=== PATIENT | female | born 1985 | race American Indian/Alaskan Native ===

== ENCOUNTER 2017-01-08 20:22 | Emergency (ER) | payer OTHER ==
[2017-01-08 20:29] VITALS: BMI 20.9
[2017-01-08 20:53] VITALS: BP 129/60; PULSE 89; RESP 17; TEMP 98.4; O2SAT 100
--- NOTE | 2017-01-08 22:19 | ED PDOC ---
Arrival/HPI - General Historian: Patient - History of Present Illness Time/Duration: 1 week Symptom Onset: Gradual Symptom Course: Unchanged <Sole Lyons - Last Filed: 01/08/17 22:30> <Murali Ritter - Last Filed: 01/08/17 22:41> - General Chief Complaint: Abnormal Skin Integrity Time Seen by Provider: 01/08/17 20:38 - History of Present Illness Narrative History of Present Illness (Text): 01/08/17 22:32 31-year-old female presents today with pruritic rash to the entire body. Patient states she was in [place] for 5 days and immediately after showering in [place] she developed pruritic rash to the entire body. She denies chest pain or shortness of breath. She denies difficulty breathing or swallowing. Patient states she was seen by the doctor in [place] and they told her that it was allergic reaction and she should take Benadryl. Patient states she's been taking Benadryl at helps with the itch but the rash has not resolved yet. (Sole Lyons) Past Medical History - Provider Review Nursing Documentation Reviewed: Yes - Travel History Have you recently traveled outside [place] w/in the past 3 mons?: Yes If Yes, travel location?: [place] - Infectious Disease Hx of Infectious Diseases: None - Tetanus Immunization Tetanus Immunization: Unknown - Psychiatric Hx Substance Use: No - Surgical History Hx Appendectomy: Yes - Anesthesia Hx Anesthesia: Yes Hx Anesthesia Reactions: No Hx Malignant Hyperthermia: No <Sole Lyons - Last Filed: 01/08/17 22:30> Family/Social History - Physician Review Nursing Documentation Reviewed: Yes Family/Social History: Unknown Family HX Smoking Status: Never Smoked Hx Alcohol Use: Yes Frequency of alcohol use: Socially Hx Substance Use: No <Sole Lyons - Last Filed: 01/08/17 22:30> Allergies/Home Meds <Sole Lyons - Last Filed: 01/08/17 22:30> <Murali Ritter - Last Filed: 01/08/17 22:41> Allergies/Adverse Reactions: Allergies Penicillins Adverse Reaction (Verified 01/08/17 20:29) ANAPHYLAXIS Review of Systems - Review of Systems Constitutional: absent: Fatigue, Fevers ENT: absent: Sore Throat, Sinus Congestion Respiratory: absent: SOB, Cough Cardiovascular: absent: Chest Pain, Palpitations Gastrointestinal: absent: Abdominal Pain, Nausea, Vomiting Genitourinary Female: absent: Dysuria Musculoskeletal: absent: Arthralgias Skin: Rash, Pruritis Neurological: absent: Headache, Dizziness Psychiatric: absent: Anxiety, Depression <Sole Lyons - Last Filed: 01/08/17 22:30> Physical Exam Vital Signs Reviewed: Yes Temperature: Afebrile Blood Pressure: Normal Pulse: Regular Respiratory Rate: Normal Appearance: Positive for: Well-Appearing, Non-Toxic, Comfortable Pain Distress: None Mental Status: Positive for: Alert and Oriented X 3 - Systems Exam Head: Present: Atraumatic Mouth: Present: Moist Mucous Membranes. No: Drooling, Trismus Pharnyx: Present: Normal. No: ERYTHEMA, EXUDATE, TONSILS ENLARGED, Peritonsilar Swelling, Uvular Deviation, Muffled/Hoarse Voice, Strider Nose (External): Present: Atraumatic Neck: Present: Normal Range of Motion Respiratory/Chest: Present: Clear to Auscultation Cardiovascular: Present: Regular Rate and Rhythm Upper Extremity: Present: Normal ROM Lower Extremity: Present: Normal ROM Neurological: Present: GCS=15 Skin: Present: Warm, Dry, Rashes (Patient with erythematous pinpoint papular rash noted to the arms or legs chest abdomen and back), Normal Color Psychiatric: Present: Alert, Oriented x 3 <Sole Lyons - Last Filed: 01/08/17 22:30> Medical Decision Making <Sole Lyons - Last Filed: 01/08/17 22:30> <Murali Ritter - Last Filed: 01/08/17 22:41> ED Course and Treatment: 01/08/17 22:34 Patient is nontoxic well-appearing in no distress with stable vital signs no angioedema. Lungs are clear to auscultation bilaterally there is no wheezing noted. The airway is patent Benadryl by mouth Prednisone by mouth Pepcid by mouth Patient reassessment: Patient nontoxic well-appearing no distress stable vital signs I advised taking Benadryl every 6 hours as needed for itch as well as prednisone daily x4 days. Advised patient to follow up with primary care physician within the next 2 days and return if symptoms worsen persist or if new symptoms develop Patient verbalizes understanding of discharge instructions and need for immediate followup. Impression : Rash Benadryl every 6 hours as needed for itch Prednisone once daily x4 days Pepcid one tablet daily Follow up with the primary care physician within the next 2 days. Follow-up with a business development analyst within the next 2 days Return if symptoms worsen persist or if new symptoms develop: Shortness of breath, feeling of throat closing, difficulty speaking or any other concerning symptoms develop (Sole Lyons) - Medication Orders Current Medication Orders: Discontinued Medications Diphenhydramine HCl (Benadryl) 50 mg PO STAT STA Stop: 01/08/17 22:07 Last Admin: 01/08/17 22:23 Dose: 50 mg Famotidine (Pepcid) 20 mg PO STAT STA Stop: 01/08/17 22:07 Last Admin: 01/08/17 22:23 Dose: 20 mg Prednisone (Prednisone Tab) 60 mg PO STAT ONE Stop: 01/08/17 22:07 Last Admin: 01/08/17 22:23 Dose: 60 mg - PA / MEDICAL POLICY SPECIALIST / Resident Statement WENDY has reviewed & agrees with the documentation as recorded. WENDY has examined the patient and agrees with the treatment plan. <Murali Ritter - Last Filed: 01/08/17 22:41> Disposition/Present on Arrival - Present on Arrival Any Indicators Present on Arrival: No History of DVT/PE: No History of Uncontrolled Diabetes: No Urinary Catheter: No History of Decub. Ulcer: No History Surgical Site Infection Following: None - Disposition Have Diagnosis and Disposition been Completed?: Yes Disposition Time: 22:17 Patient Plan: Discharge <Sole Lyons - Last Filed: 01/08/17 22:30> <Murali Ritter - Last Filed: 01/08/17 22:41> - Disposition Diagnosis: Rash Disposition: HOME/ ROUTINE Patient Problems: Current Active Problems Problem Status Onset Rash Acute Condition: GOOD Discharge Instructions (ExitCare): Acute Rash (ED) Additional Instructions: Benadryl every 6 hours as needed for itch Prednisone once daily x4 days Pepcid one tablet daily Follow up with the primary care physician within the next 2 days Follow-up with a business development analyst within the next 2 days Return if symptoms worsen persist or if new symptoms develop: Shortness of breath, feeling of throat closing, difficulty speaking or any other concerning symptoms develop Prescriptions: DiphenhydrAMINE [Benadryl] 25 mg PO Q6H #20 cap Famotidine [Pepcid] 20 mg PO DAILY #30 tab predniSONE [predniSONE Tab] 3 tab PO DAILY #12 tab Referrals: Mohit Liu MD [Staff Provider] - Follow up with primary Chloé Baxter MD [Staff Provider] - Follow up with primary Rosita Galloway MD [Staff Provider] - Follow up with primary Forms: [facility] ([place]), WORK NOTE
== END 2017-01-08 22:55 | disposition home or self-care (01) ==
LOC: ED 20:22
DX: R21 Rash and other nonspecific skin eruption (principal)